=== PATIENT | male | born 1980 | race Caucasian/White ===

== ENCOUNTER 2024-03-04 06:21 | Emergency (ER) | payer OTHER ==
[~2024-03-04] VITALS: Ht 190.5 cm; Wt 90.7 kg
[2024-03-04] MEDS ORDERED: buprenorphine HCL 2 MG TAB.SUBL SL ONE ×2 (06:35→11:55)
[2024-03-04] MEDS ORDERED: CloNIDine 0.1 MG Tab PO ONE (07:35)
== END 2024-03-04 12:06 | disposition home or self-care (01) ==
LOC: ER 06:21
DX: M54.6 Pain in thoracic spine (principal); F11.23 Opioid dependence with withdrawal; V47.5XXA Car driver injured in collision with fixed or stationary object in traffic accident, initial encounter
CPT/HCPCS: 99284; A9270